=== PATIENT | male | born 1965 | race Caucasian/White ===

== ENCOUNTER 2022-05-11 08:48 | Outpatient (CLI) | payer OTHER, SELFPAY ==
[2022-05-11 14:29] LABS: Chloride* 103 mmol/L (96-114)
[2022-05-11 14:30] LABS: Potassium* 3.9 mmol/L (3.6-5.1); Sodium* 141 mmol/L (135-149)
[2022-05-11 14:32] LABS: Aspartate Amino Transferase* 26 U/L (12-35); Bilirubin Total* 0.8 mg/dL (0.1-1.5); Carbon Dioxide* 31 mmol/L (20-32); Cholesterol* 162 mg/dL (90-199); Estimated Glomerular Filt Rate 88 ml/min
[2022-05-11 14:33] LABS: Alanine Aminotransferase* 28 U/L (4-50); Alkaline Phosphatase* 61 U/L (40-150); Blood Urea Nitrogen* 13 mg/dL (7-30); Calcium* 8.9 mg/dL (8.4-10.6); Glucose* 87 mg/dL (60-115); HDL Cholesterol* 55 mg/dL (>=40); LDL Cholesterol Calculated 92 mg/dL (<100); Triglycerides* 75 mg/dL (40-149)
== END 2022-05-11 08:49 | disposition home or self-care (01) ==
PROVIDERS: PCP Physician Assistant Medical; Visit Provider Physician Assistant Medical
DX: Z00.00 Encounter for general adult medical examination without abnormal findings (principal); E78.5 Hyperlipidemia, unspecified
CPT/HCPCS: 80053; 80061

== ENCOUNTER 2023-06-30 07:32 | Outpatient (CLI) | payer OTHER, SELFPAY | END 2023-06-30 07:33 | disposition home or self-care (01) | LOC: NFLDREF 07-02 08:38 | PROVIDERS: PCP Physician Assistant Medical; Referring Provider Physician Assistant Medical; Visit Provider Physician Assistant Medical | DX: E78.2 Mixed hyperlipidemia (principal); R73.03 Prediabetes; Z12.5 Encounter for screening for malignant neoplasm of prostate; Z13.29 Encounter for screening for other suspected endocrine disorder; Z13.9 Encounter for screening, unspecified | CPT/HCPCS: 80053; 80061; 84443; G0103 ==

== ENCOUNTER 2023-12-22 06:07 | Day surgery (SDC) | payer OTHER, SELFPAY ==
[2023-12-22] VITALS (13 sets, daily range): BP systolic 107–144; BP diastolic 66–93; PULSE 44–56; RESP 16; TEMP 36.6–36.7; O2SAT 92–99; BMI 27.2
--- OUTSIDE RECORDS SUMMARY | 2023-12-22 06:10 | XMS_ITS | Encounter Summary ---
Author Organization [facility] Address [address] [place] [address] Care Team Providers Care Curtain Drier Name Role Phone Jim Wilson PA-C Primary Care Provider [phone] Feliz May DPM Unavailable [phone] Encounter Details Date Type Department Care Team (Latest Contact Info) Description 09/17/2023 Travel Social History Tobacco Use Types Packs/Day Years Used Date Smoking Tobacco: Never Alcohol Use Standard Drinks/Week Comments Not Asked 0 (1 standard drink = 0.6 oz pur e alcohol) PHQ-2 Answer Date Recorded PHQ-2 Score 0 07/19/2023 Adolescent Education Answer Date Record ed Getting School Help Needed Not on file 07/18 Sex and Gender Information Value Date Recorded Sex Assigned at Not on file Gender Identity Not on file Sexual Orientation Not on file documented as of this encounter Plan of Treatment Not on file documented as of this encounter Visit Diagnoses Not on filedocumented in this encounter Care Teams Curtain Drier Relationship Specialty Start Date End Date Jim Wilson PA-C [facility] [address] [place] [address] PCP - General 07/19/23 Feliz May DPM [id number] [facility] [facility] [address] [place] [address] Assigned Musculoskeletal Provider 07/27/23 documented as of this encounter
--- OUTSIDE RECORDS SUMMARY | 2023-12-22 06:10 | XMS_ITS | Encounter Summary ---
Author Organization [place] Address [address] [place] [address] Care Team Providers Care Baking Assistant Name Role Phone Jim Wilson PA-C Primary Care Provider [phone] Feliz May DPM Unavailable [phone] Encounter Details Date Type Department Care Team (Late st Contact Info) Description 10/19/2023 8:20 AM CDT [facility] [address] [place] [address] Onychomycosis Social History Tobacco Use Types Packs/Day Years [...] on file documented as of this encounter Procedures Procedure Name Priority Date/Time Associated Diagnosis Comments AST Routine 10/19/2023 8:25 AM CDT Onychomycosis ALT Routine 10/19/2023 8:25 AM CDT Onychomycosis documented in this encounter Results * AST FUTURE 2mo (10/19/2023 8:25 AM CDT) AST 21 0 - 45 U/L 10/19/2023 8:5 3 AM CDT [facility] Blood BLOOD SPECIMEN / Unknown Venipuncture / Unknown 10/19/2023 8:25 AM CDT 10/19/2023 8:25 AM CDT Feliz May DPM LAB - BLOOD ORDER [facility] Lab [address] Lab (1st floor, no room number) [place] [address] * ALT FUTURE 2mo (10/19/2023 8:25 AM CDT) ALT 20 0 - 70 U/L 10/19/2023 8:5 3 AM CDT [facility] Blood BLOOD SPECIMEN / Unknown Venipuncture / Unknown 10/19/2023 8:25 AM CDT 10/19/2023 8:25 AM CDT Feliz May DPM LAB - BLOOD ORDER [facility] [address] Lab (1st floor, no room number) [place] [phone] [place] [address] documented in this encounter Visit Diagnoses Diagnosis Onychomycosis Dermatophytosis of nail documented in this encounter Care Teams Baking Assistant Relationship Specialty Start Date End Date Jim Wilson PA-C [facility] [address] [facility] [place] [address] PCP - General 07/19/23 Feliz May DPM [id number] [facility] [address] [place] [address] Assigned Musculoskeletal Provider 07/27/23 documented as of this encounter
--- OUTSIDE RECORDS SUMMARY | 2023-12-22 06:10 | XMS_ITS | Encounter Summary ---
Author Organization [place] Address [address] [place] [address] Care Team Providers Care Pipeline Superintendent Name Role Phone Jim Wilson PA-C Primary Care Provider [phone] Feliz May DPM Unavailable [phone] Encounter Details Date Type Department Care Team (Late st Contact Info) Description 09/17/2023 12:30 PM CDT [facility] [address] [place] [address] Onychomycosis Social History Tobacco Use Types Packs/Day [...] Priority Date/Time Associated Diagnosis Comments AST Routine 09/17/2023 12:38 PM CDT Onychomycosis ALT Routine 09/17/2023 12:38 PM CDT Onychomycosis documented in this encounter Results * AST FUTURE 2mo (09/17/2023 12:38 PM CDT) AST 27 0 - 45 U/L 09/17/2023 12:57 PM CDT [facility] Blood STRUCTURE OF RIGHT UPPER LIMB / Unknown Venipuncture / Unknown 09/17/2023 12:38 PM CDT 09/17/2023 12:38 PM CDT Feliz May DPM LAB - BLOOD ORDER [facility] Acute Care Lab [address] Lab (1st floor, no room number) [place] [address] * ALT FUTURE 2mo (09/17/2023 12:38 PM CDT) ALT 22 0 - 70 U/L 09/17/2023 12:57 PM CDT [facility] Blood STRUCTURE OF RIGHT UPPER LIMB / Unknown Venipuncture / Unknown 09/17/2023 12:38 PM CDT 09/17/2023 12:38 PM CDT Feliz May DPM LAB - BLOOD ORDER [facility] [address] Lab (1st floor, no room number) [place] [address] documented in this encounter Visit Diagnoses Diagnosis Onychomycosis Dermatophytosis of nail documented in this encounter Care Teams Pipeline Superintendent Relationship Specialty Start Date End Date Jim Wilson PA-C [address] [place] [address] PCP - General 07/19/23 Feliz May DPM [address] [facility] [address] [place] [address] Assigned Musculoskeletal Provider 07/27/23 documented as of this encounter
--- OUTSIDE RECORDS SUMMARY | 2023-12-22 06:10 | XMS_ITS | Clinical Summary ---
Author Organization [employer] [facility] Address [place], [place] [address] Care Team Providers Care Ice Bag Assembler Name Role Phone Francisco Barton MD Primary Care Provider [phone] Allergies No known active allergies Medications Medication Sig Dispensed Refills Start Date End Date Status atorvastatin (LIPITOR) 10 mg tablet Take 10 mg by mouth at bedtime. 06/05/2022 Active methylPREDNISolone (Medrol, Jeramie,) 4 mg tabletIndications:N christy pain on left side,Muscle pain,Neck strain, initial encounter Take by mouth as instructed per packaging. 21 Tablet 06/28/2022 Active cyclobenzaprine (FLEXERIL) 10 mg tabletIndications:N christy pain on left side,Muscle pain,Neck strain, initial encounter Take 1 Tablet (10 mg) by mouth two times daily. 20 Tablet 06/28/2022 Active Active Problems Problem Noted Date Diagnosed Date Presbyopia 07/29/2017 Myopia of left eye with astigmatism 07/29/2017 Myopia of right eye 07/29/2017 Social History Tobacco Use Types Packs/Day Years Used Date Smoking Tobacco: Never Smokeless Tobacco: Never Alcohol Use Standard Drinks/Week Comments Not Asked 0 (1 standard drink = 0.6 oz pur e alcohol) Sex and Gender Information Value Date Recorded Sex Assigned at Not on file Gender Identity Not on file Sexual Orientation Not on file Obstetrics History Last Filed Vital Signs Vital Sign Reading Time Taken Comments Blood Pressure 145/84 06/28/2022 10:35 AM CDT Pulse 64 06/28/2022 10:35 AM CDT Temperature 37.1 ??C (98.8 ??F) 06/28/2022 10:35 AM C DT Respiratory Rate 16 06/28/2022 10:35 AM CDT Oxygen Saturation 96% 06/28/2022 10:35 AM CDT Inhaled Oxygen Concentration - - Weight - - Height - - Body Mass Index - - Plan of Treatment Health Maintenance Due Date Last Done Comments Tdap 08/31/1975 Depression screening for age 12+ 1976 HIV for age 15-65 08/31/1979 BMI (ht and wt on same day) for age 18+ 1982 Hepatitis C screening for ag e 18-79 1982 Tetanus booster 1984 Colonoscopy through age 75 2009 Lipids for age 45-75 2009 Zoster (shingles) series for age 50+ (1 of 2) 2014 COVID-19 vaccine series (2022- season) 2023 03/19/2022, 03/25/2021, 06/10/2020 Influenza for age 50-64 12/05/2023 Pneumococcal series for age 6-64 Aged Out No longer eligible b ased on patient's age to complete this topic Care Teams Ice Bag Assembler Relationship Specialty Start Date End Date Francisco Barton MD PCP - General 05/14/08
--- OUTSIDE RECORDS SUMMARY | 2023-12-22 06:10 | XMS_ITS | Encounter Summary ---
Author Organization [facility] Address [address] [place] [address] Care Team Providers Care Mold Closer Helper Name Role Phone Jim Wilson PA-C Primary Care Provider [phone] Feliz May DPM Unavailable [phone] Encounter Details Date Type Department Care Team (Latest Contact Info) Description 10/19/2023 Travel Social History Tobacco Use Types Packs/Day [...] on filedocumented in this encounter Care Teams Mold Closer Helper Relationship Specialty Start Date End Date Jim Wilson PA-C [facility] [address] [place] [address] PCP - General 07/19/23 Feliz May DPM [address] [facility] [address] [place] [address] Assigned Musculoskeletal Provider 07/27/23 documented as of this encounter
--- OUTSIDE RECORDS SUMMARY | 2023-12-22 06:10 | XMS_ITS | Referral Summary ---
Author Organization [place] Address [address] [place] [address] Care Team Providers Care Armor Reconnaissance Vehicle Driver Name Role Phone Jim Wilson PA-C Primary Care Provider [phone] Feliz May DPM Unavailable [phone] Encounters Date Type Department Care Team Description 10/19/2023 Travel 10/19/2023 8:20 AM CDT [facility] [address] [place] [address] Onychomycosis from Last 3 Months Allergies No known active allergies Medications Medication Sig Dispensed Refills Start Date End Date Status atorvastatin (LIPITOR) 10 MG tablet Take 10 mg by mouth daily Active Active Problems No known active problems Social History Tobacco Use Types Packs/Day Years [...] on file Sexual Orientation Not on file Last Filed Vital Signs Vital Sign Reading Time Taken Comments Blood Pressure 144/79 07/19/2023 12:39 PM CDT Pulse 80 04/07/2016 8:10 AM KNITTING DEMONSTRATOR Temperature - - Respiratory Rate - - Oxygen Saturation - - Inhaled Oxygen Concentration - - Weight 88.5 kg (195 lb) 07/19/2023 12:39 PM CDT Height 180.3 cm (5' 11) 04/07/2016 8:10 AM KNITTING DEMONSTRATOR Body Mass Index 27.2 04/07/2016 8:10 AM KNITTING DEMONSTRATOR Plan of Treatment Not on file Procedures Procedure Name Priority Date/Time Associated Diagnosis Comments AST Routine 10/19/2023 8:25 AM CDT Onychomycosis ALT Routine 10/19/2023 8:25 AM CDT Onychomycosis from Last 3 Months Results * AST FUTURE 2mo (10/19/2023 8:25 AM CDT) AST 21 0 - 45 U/L 10/19/2023 8:5 3 AM CDT [facility] Blood BLOOD SPECIMEN / Unknown Venipuncture / Unknown 10/19/2023 8:25 AM CDT 10/19/2023 8:25 AM CDT Feliz May DP LAB - BLOOD ORDER [facility] Lab [address] Lab (1st floor, no room number) [place] [address] * ALT FUTURE 2mo (10/19/2023 8:25 AM CDT) ALT 20 0 - 70 U/L 10/19/2023 8:5 3 AM CDT [facility] Blood BLOOD SPECIMEN / Unknown Venipuncture / Unknown 10/19/2023 8:25 AM CDT 10/19/2023 8:25 AM CDT Feliz May DPM LAB - BLOOD ORDER [facility] Lab [address] Lab (1st floor, no room number) [place] [address] from Last 3 Months Care Teams Armor Reconnaissance Vehicle Driver Relationship Specialty Start Date End Date Jim Wilson PA-C [facility] [address] [facility] [place], [place] [id number] PCP - General 07/19/23 Feliz May DPM [id number] [address] Assigned Musculoskeletal Provider 07/27/23
--- OUTSIDE RECORDS SUMMARY | 2023-12-22 06:10 | XMS_ITS | Clinical Summary ---
Author Organization [facility] Address [address] [place] [address] Care Team Providers Care Hooker Operator Name Role Phone Jim Wilson PA-C Primary Care Provider [phone] Feliz May DPM Unavailable [phone] Allergies No known active allergies Medications Medication Sig Dispensed Refills Start Date End Date Status atorvastatin (LIPITOR) 10 MG tablet Take 10 mg by mouth daily Active Active Problems No known active problems Encounters Date Type Department Care Team Description 10/19/2023 8:20 AM CDT Lab [facility] [address] [place] [address] Onychomycosis 10/19/2023 Travel from Last 3 Months Family History Medical History Relation Comments Breast Cancer Other Cerebrovascular Disease Other Heart Disease Other Relation Status Comments Other Social History Tobacco Use Types Packs/Day Years [...] PM CDT Pulse 80 04/07/2016 8:10 AM FIELD DIRECTOR Temperature - - Respiratory Rate - - Oxygen Saturation - - Inhaled Oxygen Concentration - - Weight 88.5 kg (195 lb) 07/19/2023 12:39 PM CDT Height 180.3 cm (5' 11) 04/07/2016 8:10 AM FIELD DIRECTOR Body Mass Index 27.2 04/07/2016 8:10 AM FIELD DIRECTOR Plan of Treatment Health Maintenance Due Date Last Done Comments ADVANCE CARE PLANNING 1964 ANNUAL REVIEW OF HM ORDERS 1964 CT COLONOGRAPHY 1964 FIT 1964 FLEX SIG 1964 GLUCOSE 1964 LIPID 1964 YEARLY PREVENTIVE VISIT 1964 sDNA (Cologuard) 1964 COLONOSCOPY 1974 COLORECTAL CANCER SCREENING 1974 HIV SCREENING 08/31/1979 HEPATITIS C SCREENING 1982 HEPATITIS B IMMUNIZATION (1 of 3 - 19+ 3-dose series) 08/31/1983 ZOSTER IMMUNIZATION (1 of 2) 2014 COVID-19 Vaccine (4 - 2022-2 4 season) 2023 03/19/2022, 03/25/2021, 06/10/2020 INFLUENZA VACCINE (#1) 2023 12/31/2022 DTAP/TDAP/TD IMMUNIZATION (2 - Td or Tdap) 05/14/2032 05/14/2022 PHQ-2 (once per calendar year) Completed 07/19/2023 HPV IMMUNIZATION Aged Out No longer e ligible based on patient's age to complete this topic MENINGITIS IMMUNIZATION Aged Out No l onger eligible based on patient's age to complete this topic Pneumococcal Vaccine: Pediatrics (0 to 5 Years) and At-Risk Patients (6 to 64 Years) Aged Out No longer eligible b ased on patient's age to complete this topic RSV MONOCLONAL ANTIBODY Aged Out No l onger eligible based on patient's age to complete this topic Procedures Procedure Name Priority Date/Time Associated Diagnosis [...] DPM LAB - BLOOD ORDER [facility] Acute Care Lab [address] Lab (1st floor, no room number) [place] [id number] [place] [address] * ALT FUTURE 2mo (10/19/2023 8:25 AM CDT) ALT 20 0 - 70 U/L 10/19/2023 8:5 3 AM CDT [facility] Blood BLOOD SPECIMEN / Unknown Venipuncture / Unknown 10/19/2023 8:25 AM CDT 10/19/2023 8:25 AM CDT Feliz May DPM LAB - BLOOD ORDER [facility] Acute Care Lab [address] Lab (1st floor, no room number) [address] from Last 3 Months Care Teams Hooker Operator Relationship Specialty Start Date End Date Jim Wilson PA-C [address] [place] [address] PCP - General 07/19/23 Feliz May DPM [address] [address] Assigned Musculoskeletal Provider 07/27/23
[2023-12-22] MEDS: LACTATED RINGERS 1000 ML 1,000 ML 100 ML IV ×2 (06:20→08:21)
[2023-12-22] MEDS: SODIUM CHLORIDE 0.9 % (FLUSH) 10 ML SYRINGE IVF (06:20)
--- NOTE | 2023-12-22 07:12 | W.PM.H&PU ---
History & Physical Update History & Physical Update H&P Reviewed and patient assessed: No changes noted
[2023-12-22] MEDS: CEFAZOLIN 2 GM in 0.9 % SODIUM CHLORIDE Mini-bag 100 ML IVPB (07:25)
--- NOTE | 2023-12-22 08:02 | PM.ORPRC ---
Procedure Note Date of procedure: 12/22/23 Procedure: PREOPERATIVE DIAGNOSIS: 1. Left knee medial meniscus tear, complex POSTOPERATIVE DIAGNOSIS: 1. Left knee medial meniscus tear, complex 2. 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 Left knee arthroscopic partial medial meniscectomy 2. Left knee arthroscopic chondroplasty lateral and patellofemoral compartments SURGEON: Alec Manuel M.D. ACTUARIAL TECHNICIAN: Trini Cesar PA-C. Of note, an expanded duty dental assistant was critical for this case to aid in patient positioning, knee manipulation, instrument exchange, and closure. ANESTHESIA: Spinal EBL: 2ml TOURNIQUET: 30 min at 300 torr COMPLICATIONS: None evident INDICATIONS: The patient is a pleasant 58-year-old male who has experienced left knee pain particularly with any twisting or turning. Physical exam was concerning for medial meniscus tear, this was confirmed on MRI. Additionally, attempted nonoperative management has been tried, and failed. Thus, surgery was recommended. FINDINGS: Complex tear of the posterior horn approaching midbody medial meniscus. Posterior root intact. Lateral meniscus intact. Grade 3 chondromalacia lateral femoral condyle and patellar median ridge. Grade 2 chondromalacia medial femoral condyle. ACL and PCL intact. DESCRIPTION OF PROCEDURE: After a thorough discussion of risks, benefits, and alternatives, the patient was brought to the operating room and placed upon the operating table. Induction of anesthesia was undertaken as previously noted. 2g iv Ancef was administered within 1 hr of incision preoperatively. Appropriate time-out was performed identifying proper patient, site, and procedure. The left lower extremity was prepped and draped in the appropriate sterile fashion using ChloraPrep. The limb was exsanguinated and tourniquet inflated. Anterolateral and anteromedial portals were established with an 11 blade, and a diagnostic arthroscopy was performed. This identified the findings as noted above. Following the diagnostic arthroscopy, a partial medial menisectomy was performed with the combination of basket forceps and a motorized shaver. Following this, the meniscus was re-probed and found to be stable. Approximately 25 % of the overall meniscus required resection. In addition, torpedo shaver was utilized for chondroplasty of the loose chondral flaps on the lateral femoral condyle weight-bearing portion central region as well as the patellar median ridge. At this stage, the shaver was reinserted into the suprapatellar pouch and all remaining meniscal debris was evacuated. Instruments were removed, excess fluid was drained, and closure performed with 4-0 Monocryl with Steri-Strips. Dressings were applied, the tourniquet deflated, and the patient was awoken from anesthesia and transferred to the PACU in stable condition. PLAN: 1. Weightbear as tolerated operative extremity. Crutch / walker ambulation assistance PRN. Straight leg raise to be initiated starting tomorrow by the patient. 2. Ice, acetominophen and/or ibuprofen, and oxycodone for pain as needed. 3. Knee range of motion and quad sets/straight leg raise regularly 4. Follow up with PA visit in 7-10 days. for a wound check. Initiate physical therapy at that time
[2023-12-22] MEDS: ROPIVACAINE 0.5% 30 ML 150 MG INJECTION (08:05)
--- NOTE | 2023-12-22 08:16 | W.ANESCHARGE ---
Anesthesia Charges Start Date/Time Anesthesia Start Date: 12/22/23 Anesthesia Start Time: 07:14 Stop Date/Time Anesthesia Stop Date: 12/22/23 Anesthesia Stop Time: 08:15
--- NOTE | 2023-12-22 08:25 | W.ANESCHARGE ---
Anesthesia Charges Start Date/Time Anesthesia Start Date: 12/22/23 Anesthesia Start Time: 07:14 Stop Date/Time Anesthesia Stop Date: 12/22/23 Anesthesia Stop Time: 08:15
== END 2023-12-22 09:58 | disposition home or self-care (01) ==
LOC: OR 06:08
PROVIDERS: PCP Physician Assistant Medical; Visit Provider Orthopaedic Surgery Sports Medicine
PROC: (CPT 29870; principal; 2023-12-22 07:15)
DX: S83.232A Complex tear of medial meniscus, current injury, left knee, initial encounter (principal); M94.262 Chondromalacia, left knee
CPT/HCPCS: 29881; 01400; J0690; J1100; J2250; J2405; J2704; J2795; J3010; J7120

== ENCOUNTER 2024-08-04 07:30 | Outpatient (CLI) | payer BC, SELFPAY | END 2024-08-04 07:31 | disposition home or self-care (01) | LOC: NFLDREF 08-05 08:04 | PROVIDERS: PCP Physician Assistant Medical; Referring Provider Physician Assistant Medical; Visit Provider Physician Assistant Medical | DX: Z00.01 Encounter for general adult medical examination with abnormal findings (principal); R73.03 Prediabetes; E78.2 Mixed hyperlipidemia; Z12.5 Encounter for screening for malignant neoplasm of prostate | CPT/HCPCS: 80053; 80061; 84443; G0103 ==